=== PATIENT | male | born 1995 | race Two or more races ===

== ENCOUNTER 2022-04-20 17:09 | Emergency (ER) | payer OTHER ==
[~2022-04-20] VITALS: Ht 167.6 cm; Wt 70.6 kg
[2022-04-20 17:22] VITALS: BP 111/79
[2022-04-20] MEDS ORDERED: HYDROcodone/acetaminophen 10/325mg tab PO ONE (17:35)
--- NOTE | 2022-04-20 18:22 | NUR ---
PT ATTEMPTING TO REMOVE RING FROM AFFECTED HAND
[2022-04-20] MEDS ORDERED: CEPH-585 PO (19:54)
[2022-04-20] MEDS ORDERED: cephalexin 250mg capsule PO ONE (19:55)
[2022-04-20] MEDS ORDERED: HYDR-3972 PO (20:23)
== END 2022-04-20 20:42 | disposition home or self-care (01) ==
LOC: ER 17:10
DX: S62.663A Nondisplaced fracture of distal phalanx of left middle finger, initial encounter for closed fracture (principal); S61.213A Laceration without foreign body of left middle finger without damage to nail, initial encounter; Z79.2 Long term (current) use of antibiotics; Z79.899 Other long term (current) drug therapy; X58.XXXA Exposure to other specified factors, initial encounter; Y93.89 Activity, other specified; Y92.89 Other specified places as the place of occurrence of the external cause; Y99.8 Other external cause status
CPT/HCPCS: 11760; 12001; 73130; 99284

== ENCOUNTER 2022-06-05 19:56 | Emergency (ER) | payer OTHER ==
[~2022-06-05] VITALS: Ht 167.6 cm; Wt 63.2 kg
[~2022-06-05 19:56] MED LIST: CEPH-585 PO
[2022-06-05 21:16] LABS: BASOPHILS % (AUTO) 0.4 % (0-1); EOSINOPHILS # (AUTO) 0.2 X10'3 (0-0.9); EOSINOPHILS % (AUTO) 3.3 % (0-6); HEMATOCRIT 40.5 % (42.0-52.0); LYMPHOCYTES # (AUTO) 2.3 X10'3 (1.1-4.8); LYMPHOCYTES % (AUTO) 33.5 % (21-51); MEAN CORPUSCULAR HEMOGLOBIN 30.8 PG (27.0-31.0); MEAN CORPUSCULAR HGB CONC 34.5 g/dL (33.0-36.5); MEAN CORPUSCULAR VOLUME 89.1 FL (78-98); MEAN PLATELET VOLUME 9.6 FL (7.4-10.4); MONOCYTES # (AUTO) 0.7 X10'3 (0-0.9); MONOCYTES % (AUTO) 10.6 % (2-12); NEUTROPHILS # (AUTO) 3.5 X10'3 (1.8-7.7); NEUTROPHILS % (AUTO) 52.2 % (42-75); PLATELET COUNT 184 X10'3 (140-440); RED BLOOD COUNT 4.55 X10'6 (4.70-6.10); WHITE BLOOD COUNT 6.7 X10'3 (4.5-11.0)
[2022-06-05 21:26] LABS: ALANINE AMINOTRANSFERASE 25 U/L (12-78); ALBUMIN 4.2 G/DL (3.4-5.0); ALBUMIN/GLOBULIN RATIO 1.4 (1.1-1.5); ALKALINE PHOSPHATASE 51 IU/L (46-116); ANION GAP 5 (8-16); ASPARTATE AMINO TRANSFERASE 22 U/L (10-37); BILIRUBIN,TOTAL 0.6 MG/DL (0.1-1.0); BLOOD UREA NITROGEN 18 MG/DL (7-18); BUN/CREATININE RATIO 23.1 (5.4-32.0); CALCIUM 9.1 MG/DL (8.5-10.1); CHLORIDE 105 MMOL/L (99-107); CREATININE 0.78 MG/DL (0.60-1.10); GLUCOSE 90 MG/DL (70-104); POTASSIUM 3.4 MMOL/L (3.5-5.1); SODIUM 140 MMOL/L (135-145); TOTAL CARBON DIOXIDE 29.7 MMOL/L (24-32); TOTAL PROTEIN 7.3 G/DL (6.4-8.2); eGFR > 90 ML/MIN
[2022-06-06] MEDS ORDERED: ketorolac tromethamine 15mg/ml inj. IV ONE (05:00)
[2022-06-06] MEDS ORDERED: normal saline 1000ML IV soln IVB ONE (05:00)
--- NOTE | 2022-06-06 08:11 | NUR ---
VO from Dr. Andrews, pt to have blood cultures drawn.
[2022-06-06] MEDS ORDERED: NAPR-56 PO (08:44)
[2022-06-06] MEDS ORDERED: DEXAMETHASONE 6 MG TABLET PO ONE (08:55)
[2022-06-06 09:19] VITALS: BP 125/83
[2022-06-07] MEDS ORDERED: DEXAMETHASONE 6 MG TABLET PO SCH (08:00)
[2022-06-09] MEDS ORDERED: iohexol 350MG/ML 100ml bottle IV ONE (08:00)
== END 2022-06-06 09:20 | disposition home or self-care (01) ==
LOC: ER 19:56
DX: R07.89 Other chest pain (principal); Z91.013 Allergy to seafood
CPT/HCPCS: 36415; 71045; 71275; 80053; 83880; 84145; 84484; 85025; 85651; 86140; 87040; 93005; 96374; 99285; J1885; J7030; J8540